=== PATIENT | male | born 1990 | race Caucasian/White ===

== ENCOUNTER 2016-06-29 14:09 | Outpatient (CLI) | payer OTHER | END 2016-06-29 14:10 | disposition home or self-care (01) | DX: G47.33 Obstructive sleep apnea (adult) (pediatric) (principal) ==

== ENCOUNTER 2016-08-06 06:59 | Outpatient (CLI) | payer OTHER | END 2016-08-06 07:00 | disposition home or self-care (01) | DX: G47.33 Obstructive sleep apnea (adult) (pediatric) (principal) ==

== ENCOUNTER 2016-09-01 08:43 | Outpatient (CLI) | payer OTHER | END 2016-09-01 08:44 | disposition home or self-care (01) | DX: G47.33 Obstructive sleep apnea (adult) (pediatric) (principal) ==

== ENCOUNTER 2017-10-13 13:20 | Emergency (ER) | payer OTHER ==
[2017-10-13 13:39] VITALS: BP 155/106
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
== END 2017-10-13 17:07 | disposition home or self-care (01) ==
LOC: ED 13:20
DX: S16.1XXA Strain of muscle, fascia and tendon at neck level, initial encounter (principal); V43.52XA Car driver injured in collision with other type car in traffic accident, initial encounter; Y92.410 Unspecified street and highway as the place of occurrence of the external cause; Y99.0 Civilian activity done for income or pay
CPT/HCPCS: 1040M; 72125; 99282; 99283